=== PATIENT | female | born 1995 | race Caucasian/White ===

== ENCOUNTER 2022-05-23 07:54 | Outpatient (CLI) | payer OTHER, SELFPAY ==
[2022-05-23 08:39] LABS: Beta HCG Quantitative < 2.39 mIU/ML
== END 2022-05-23 07:55 | disposition home or self-care (01) ==
LOC: ANHLAB 07:55
PROVIDERS: PCP Internal Medicine; Visit Provider Obstetrics & Gynecology
DX: N92.6 Irregular menstruation, unspecified (principal)
CPT/HCPCS: 36415; 84702

== ENCOUNTER 2022-11-04 10:49 | Emergency (ER) | payer OTHER, SELFPAY ==
[2022-11-04 11:06] VITALS: BP 122/70; PULSE 80; RESP 18; TEMP 36.3; O2SAT 100
--- NOTE | 2022-11-04 11:28 | ED.URI ---
HPI - URI/Sore Throat General Chief Complaint: Upper Respiratory Infection Stated Complaint: sorethroat Time Seen by Provider: 11/04/22 11:39 Source: patient, RN notes reviewed and old records reviewed Mode of arrival: ambulatory Limitations: no limitations History of Present Illness HPI Narrative: 26-year-old female presents to the [facility] with sore throat, drainage and feeling febrile for 2 days. Had taken Dominique-[place] this morning. denies nausea vomiting diarrhea. denies chest pain, abdominal Related Data Home Medications Medication Instructions Recorded Confirmed levonorgestrel 14 mcg/24 hrs (3 1 device intrauterine ONCE 07/05/22 11/04/22 yrs) 13.5 mg intrauterine device (Carolynn) Allergies Allergy/AdvReac Type Severity Reaction Status Date / Time No Known Allergies Allergy Mild Verified 11/04/22 11:15 Review of Systems Review of Systems: All systems reviewed & are unremarkable except as noted in HPI and below Constitutional: Constitutional: Reports no additional constitutional complaints Eyes: Eyes: Reports no additional eye complaints ENT: Reports as per HPI and Reports sore throat Cardiovascular: Cardiovascular: Reports no additional cardiovascular complaints, Denies chest pain and Denies dyspnea Respiratory: Respiratory: Reports no additional respiratory complaints, Denies chest congestion, Denies cough and Denies dyspnea Gastrointestinal: Gastrointestinal: Reports no additional gastrointestinal complaints, Denies abdominal pain, Denies nausea and Denies vomiting Musculoskeletal: Musculoskeletal: Reports no additional musculoskeletal complaints Integumentary/Breasts: Skin/Breast: Reports system reviewed and no additional complaints, except as docu Neurologic: Reports system reviewed and no additional complaints, except as documented Psychiatric: Psychiatric: Reports no additional psychiatric complaints Allergic/Immunologic: Allergic/Immunologic: Reports no additional allergic/immunologic complaints PMFSH Past Medical History Medical History Epiblepharon Normal cystoscopy thickened bladder wall Surgical History Surgical History H/O colposcopy with cervical biopsy H/O gynecological procedure carolynn insertion Family History Family History Other Breast cancer Carcinoma of colon Cerebrovascular accident Diabetes mellitus Hypertension Social History Social History Smoking status: Never smoker Second hand tobacco smoke exposure: No Alcohol intake: current Alcohol use details: socially Substance use: never 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 There is no relevant family history pertinent to the patient complaint. Exam Const: General: cooperative, healthy appearing, comfortable, no acute distress, well developed, alert, average body habitus and well nourished Nutritional Appearance: average body habitus and well nourished Orientation/consciousness: patient oriented x3 Limitations: no limitations HENMT: Head: normal to inspection Ears: hearing grossly normal bilaterally and external ears normal Face/Nose/Sinus: Normal external nose present, Normal nares present, Normal nasal mucous membranes and turbinates present and normal facial exam Face and sinus: normal facial exam Mouth: Yes Normal oral and palatal mucosa present, Yes lip normal and Yes moist mucous membranes Throat: posterior oropharynx normal, tonsils normal, uvula midline and postnasal drainage Eyes:
== END 2022-11-04 12:01 | disposition home or self-care (01) ==
PROVIDERS: Emergency Provider Nurse Practitioner
DX: J06.9 Acute upper respiratory infection, unspecified (principal)
CPT/HCPCS: 87081; 87880; 99213; G0463

== ENCOUNTER 2024-04-11 07:06 | Outpatient (CLI) | payer OTHER, SELFPAY ==
[2024-04-11 09:12] LABS: Basophils Percent Auto 0.7 % (0.2-1.2); Eosinophils Absolute Auto 0.1 K/mm3 (0-0.3); Hematocrit 41.8 % (37.0-47.0); Hemoglobin 13.7 g/dL (12.0-15.0); Immature Granulocyte Absolute 0.02 K/mm3 (0.00-0.031); Immature Granulocyte Percent A 0.3 % (0-0.5); Lymphocytes Absolute Auto 2.34 K/mm3 (0.9-3.2); Lymphocytes Percent Auto 39.4 % (18.3-44.2); Mean Corpuscular HGB Conc 32.8 g/dl (32-36); Mean Corpuscular Hemoglobin 30.4 pg (26-34); Mean Corpuscular Volume 92.9 fl (80-100); Mean Platelet Volume 11.6 fl (7.4-10.4); Monocytes Absolute Auto 0.4 K/mm3 (0.1-0.6); Monocytes Percent Auto 6.6 % (2.6-8.5); Platelet Count Result 192 k/mm3 (150-375); Red Cell Distribution Width 12.2 % (11.5-14.5); White Blood Count 5.9 K/mm3 (4.5-10.0)
[2024-04-12 06:23] LABS: FSH 5.4 mIU/mL
[2024-04-12 06:45] LABS: DHEA-Sulfate 109 mcg/dL (14-349)
[2024-04-13 16:22] LABS: Testosterone Total 21 ng/dL (2-45)
[2024-04-19 22:53] LABS: Estradiol, Ultrasensitive 115 pg/mL
== END 2024-04-11 07:07 | disposition home or self-care (01) ==
PROVIDERS: Visit Provider Obstetrics & Gynecology
DX: N92.6 Irregular menstruation, unspecified (principal); Z30.431 Encounter for routine checking of intrauterine contraceptive device
CPT/HCPCS: 36415; 82627; 82670; 83001; 83498; 84403; 84443; 85025

== ENCOUNTER 2025-06-04 08:37 | Emergency (ER) | payer OTHER, SELFPAY ==
[2025-06-04 08:48] VITALS: BP 130/82; PULSE 74; RESP 16; TEMP 36.5; O2SAT 100
--- NOTE | 2025-06-04 09:05 | ED.URI ---
HPI - URI/Sore Throat General Chief Complaint: Upper Respiratory Infection Stated Complaint: COUGH/CONGESTION/WHEEZING Time Seen by Provider: 06/04/25 09:05 Source: patient Mode of arrival: ambulatory Limitations: no limitations History of Present Illness HPI Narrative: 29-year-old female presents with complaint of sinus pressure, sinus headaches, postnasal drainage, coughing. Pressure to ears. Symptoms for approximately 8 days. Using Claritin and a steroid nasal spray daily. So taking DayQuil NyQuil cold and Sinus. Afebrile. No chest pain or shortness of breath. All systems reviewed and negative except as noted above. Related Data Allergies Allergy/AdvReac Type Severity Reaction Status Date / Time No Known Allergies Allergy Mild Verified 06/04/25 08:50 Review of Systems Review of Systems: CONSTITUTIONAL: Denies fever, chills, or sweats. EYES: Denies visual changes, redness, or discharge. ENT: Reports rhinorrhea, congestion, sinus pressure. Denies sore throat, or otalgia. CARDIOVASCULAR: Denies chest pain, palpitations, or edema. RESPIRATORY: Reports cough. Denies dyspnea. GASTROINTESTINAL: Denies abdominal pain, nausea, vomiting, or diarrhea. GENITOURINARY: Denies dysuria or hematuria. SKIN: Denies rash or itching. MUSCULOSKELETAL: Denies back pain, joint pain, or myalgia. NEUROLOGIC: Denies headache, numbness, or weakness. PSYCHIATRIC: Denies anxiety or depression. All other systems reviewed are negative, except as documented in HPI. [facility] Past Medical History Medical History Normal cystoscopy thickened bladder wall Epiblepharon Surgical History Surgical History H/O colposcopy with cervical biopsy 04/18/2024 Lgsil +hpv H/O gynecological procedure alejandrina insertion H/O colposcopy with cervical biopsy colpo biopsies CLOVER 1; just repeat pap smear in 1 year Family History Family History Other Breast cancer Carcinoma of colon Cerebrovascular accident Diabetes mellitus Hypertension Social History Social History (Updated 03/25/25 @ 15:10 by Natalia Osman CMA) Smoking status: Never smoker Second hand tobacco smoke exposure: No Alcohol intake: current Alcohol use details: socially Substance use: never Substance use type: does not use Do You Feel Safe in your Home?: Yes Lack of Transportation: No Lack of Food: Never True Current Housing: I Do Not Have Housing Concerned About Future Housing: No Difficulty Paying Gas/Electric Bills: No Difficulty Paying for Meds: No Currently Unemployed: No Education: Associate Degree Difficulty w/ Childcare or Family Care: No Living arrangements: with family Additional living arrangements comments: single Occupation/Education: occupation 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 There is no relevant family history pertinent to the presenting complaint. Exam Narrative: GENERAL: This is a well-nourished, well-developed patient, in no apparent distress. HEAD: normocephalic, atraumatic. EYES: PERRL. Sclera clear/white. Vision is grossly intact. EARS: External ears normal, auditory canals clear and without drainage, fluid with mild erythema to right TM. Left TM is normal. No perforation bilaterally. Hearing grossly intact. NOSE: External nose normal with purulent nasal drainage, erythema to bilateral nares. Maxillary sinus tenderness bilaterally. THROAT: Mucous membranes moist, erythema postnasal drainage. No significant swelling or exudates. NECK: Neck supple, non-tender without lymphadenopathy, masses or thyromegaly. CARDIOVASCULAR: Regular rate and rhythm without murmurs, gallops, or rubs. RESPIRATORY: Clear to auscultation. Breath sounds equal bilaterally. No wheezes, rales, or rhonchi. SKIN: warm, Dry, intact with no suspicious lesions or rash, good texture and turgor. NEURO: awake, alert, and oriented to person, place and time. There were no obvious focal neurologic abnormalities. EXTREMITIES: No joint tenderness, effusion, or edema noted. Course Course Level of Care: Express Care Visit Vital Signs Vital signs: Vital Signs Temperature 36.5 C 06/04/25 08:48 Pulse Rate 74 06/04/25 08:48 Respiratory Rate 16 06/04/25 08:48 Blood Pressure 130/82 06/04/25 08:48 Pulse Oximetry 100 06/04/25 08:48 Temperature 36.5 C 06/04/25 08:48 Pulse Rate 74 06/04/25 08:48 Respiratory Rate 16 06/04/25 08:48 Blood Pressure 130/82 06/04/25 08:48 Pulse Oximetry 100 06/04/25 08:48 Reviewed MDM - URI/Sore Throat MDM Narrative Medical decision making narrative: Will prescribe amoxicillin today for sinus symptoms and right serous otitis media. Patient is well-appearing, nontoxic. Patient agrees with plan of care. Stable for outpatient therapy. Discharge Plan Discharge Clinical Impression: Acute serous otitis media of right ear, Acute sinusitis Patient Disposition: Home Condition: Stable Instructions: Antibiotic Form, Fluid In The Ear (Serous Otitis Media) (ED) Additional Instructions: Take medications as prescribed. Continue taking a daily antihistamine such as Claritin or Zyrtec. Drink at least 64 oz of water a day. Follow-up with your doctor if symptoms are not improving. Patient Language: Indonesian Prescriptions: New amoxicillin 875 mg tablet 875 mg PO Q12H 10 Days Qty: 20 0RF methylprednisolone [Medrol ([place])] 4 mg tablets,dose pack See Rx Instructions PO .COMPLEX Qty: 21 0RF Rx Instructions: orally per package directions Follow-up/Referrals: PHYSICIAN,[employer] [Primary Care Provider] - Time of Disposition: 09:11
== END 2025-06-04 09:16 | disposition home or self-care (01) ==
PROVIDERS: Emergency Provider Nurse Practitioner Family
DX: H65.01 Acute serous otitis media, right ear (principal); J01.90 Acute sinusitis, unspecified
CPT/HCPCS: 99213; G0463

== ENCOUNTER 2025-10-13 15:37 | Outpatient (CLI) | payer OTHER, SELFPAY ==
[2025-10-13 16:05] LABS: Hematocrit 37.0 % (37.0-47.0); Hemoglobin 12.3 g/dL (12.0-15.0); Mean Corpuscular HGB Conc 33.2 g/dl (32-36); Mean Corpuscular Hemoglobin 29.4 pg (26-34); Mean Corpuscular Volume 88.5 fl (80-100); Platelet Count Result 250 k/mm3 (150-375); Red Blood Count 4.18 M/mm3 (4.2-5.4); White Blood Count 10.6 K/mm3 (4.5-10.0)
[2025-10-13 16:59] LABS: Syphilis IgG/IgM Antibody Non-Reactive (Nonreactive)
[2025-10-13 17:01] LABS: HIV 1/2 Ab P24 Ag Result Negative (Negative)
[2025-10-13 17:03] LABS: Hepatitis B Surface Antigen Negative (Negative)
[2025-10-14 06:08] LABS: Cytomegalovirus (CMV) Ab, IgG <0.60 U/mL (0.00-0.59)
[2025-10-14 09:09] LABS: Varicella-Zoster Ab, IgG Reactive (Non Reactive)
[2025-10-16 12:09] LABS: Parvovirus B19, IgG 5.5 index (0.0-0.8); Parvovirus B19, IgM 0.2 index (0.0-0.8)
== END 2025-10-13 15:38 | disposition home or self-care (01) ==
LOC: ANHLAB 15:39
PROVIDERS: Visit Provider Student in an Organized Health Care Education/Training Program
DX: N91.2 Amenorrhea, unspecified (principal)
CPT/HCPCS: 36415; 84702; 85027; 86593; 86644; 86703; 86747; 86762; 86787; 86850; 86900; 86901; 87086; 87340; G0432